=== PATIENT | female | born 1995 | race Caucasian/White ===

== ENCOUNTER 2019-12-07 11:38 | Emergency (ER) | payer BC, SELFPAY ==
--- NOTE | 2019-12-07 14:51 | PC.NURSE ---
AT 1400 PT STATES SHE CANT WAIT ANY LONGER AND LWT
== END 2019-12-07 14:56 | disposition left against medical advice (07) ==
PROVIDERS: Emergency Provider Emergency Medicine
DX: R10.9 Unspecified abdominal pain (principal)
CPT/HCPCS: 99281

== ENCOUNTER 2022-11-05 15:51 | Emergency (ER) | payer MEDICAID, SELFPAY ==
[2022-11-05 15:54] VITALS: BP 136/89; PULSE 104; RESP 16; TEMP 35.9; O2SAT 94; BMI 39.7
--- NOTE | 2022-11-05 15:54 | ED.GENADULT ---
HPI - General Adult General Chief complaint: Skin/Abscess/Foreign Body Stated complaint: cyst burst, unknown area Time Seen by Provider: 11/05/22 16:31 Source: patient Mode of arrival: ambulatory Limitations: no limitations History of Present Illness HPI narrative: 27-year-old female with history of opioid use disorder on methadone, obesity, asthma who presents to the ER for evaluation of a ruptured cyst on her right buttock. She states she noticed a tender, swollen area yesterday. She has history of similar cysts and abscesses in this area in the past, they it usually spontaneously drain and self-resolved. She states today the pain worsened and the cyst spontaneously ruptured. It drained a murky bloody fluid. She still had some tenderness surrounding the area and it was warm to touch. He was still actively draining so she came to the ER for further evaluation. She denies any fever or chills. She is not diabetic. MD complaint: Right buttock abscess Onset (ago): day(s) (1) Location: buttocks Radiation: non-radiation Severity: moderate Quality: sharp Pain Consistency: intermittent Relieving factors: none Exacerbating factors: other (palpation and sitting) Associated symptoms: denies other symptoms Treatments prior to arrival: none Related Data Previous Rx's Medication Instructions Recorded cephalexin 500 mg capsule 500 mg PO Q6H 5 days #20 caps 11/05/22 doxycycline hyclate 100 mg tablet 100 mg PO BID #10 tabs 11/05/22 Allergies Allergy/AdvReac Type Severity Reaction Status Date / Time acetaminophen [From TYLENOL] Allergy Unknown UPSET Unverified 11/10/19 16:38 STOMACH Review of Systems Review of Systems: Yes all other systems are reviewed and are negative [facility] Social History Social History Advance Directives: No Advance Directives Information Provided: Yes Physical Exam ED Vital Signs: Vital Signs - 24 hr 11/05/22 15:54 Temperature 96.6 F L Pulse Rate 104 H Respiratory Rate 16 Blood Pressure 136/89 Pulse Oximetry 94 Oxygen Delivery Method Room Air BMI result Body Mass Index 39.7 Appearance: Alert. Oriented X3. No acute distress. HEENT: normal inspection CVS: Normal heart rate and rhythm. Pulses normal. Respiratory: No respiratory distress. Skin: Skin warm and dry. Normal skin color. Normal skin turgor. on the right buttock there is a small, 1 cm area of open active draining bloody/purulent fluid with approximately 2-3 cm of surrounding erythema and induration with tenderness. No additional fluctuant areas appreciated. Distal from the anal verge and rectum. Scarring present on bilateral buttocks from prior cysts and lesions Extremities: normal inspection x4, no joint swelling Neuro: Oriented X 3. No motor deficit. No sensory deficit. Course Course Course Narrative: RME- 27 year old female presents for evaluation of an abscess in the perineum that popped this morning in the shower. Not visualized in triage. Patient also reports a cough and chest congestion from removing dry wall and there was black mold. Plan for chest x-ray Medical Decision Making Medical Decision Making MDM Narrative: 27-year-old female presenting to the ER for evaluation of a painful, draining cyst that was present on the right buttock starting yesterday. It is draining some dark red purulent material. no need for additional incision and drainage today. She does have some surrounding erythema and induration. Will treat with antibiotics. She was given strict return precautions to return if symptoms are worsening despite antibiotics Differential Diagnosis Differential Diagnoses: The differential diagnosis associated with the presentation includes abscess, cellulitis, hidradenitis suppurative, MRSA infection, no evidence of perianal abscess Prescription Management I considered prescription management with: Pain Medication and Antibiotic Chronic Conditions Patient?s care impacted by: Other (obesity) Critical Care Time Critical Care Time Critical Care Time: No Discharge Plan Discharge Clinical Impression: Abscess of skin or subcutaneous tissue Patient Disposition: Home, Self-Care Instructions: Abscess (ED) Additional Instructions: Take the prescribed antibiotics as directed, complete the entire course and do not miss any doses Use warm soaks to the area or take warm baths to help increase blood flow an for the area to heal. If you develop new or worsening symptoms call 911 or come back to the ER for further evaluation. Prescriptions: New cephalexin 500 mg capsule 500 mg PO Q6H 5 Days Qty: 20 0RF doxycycline hyclate 100 mg tablet 100 mg PO BID Qty: 10 0RF Referrals: [facility] [Primary Care Provider] - Interventions: ED Discharge Assessment Last Done: 11/05/22 17:37 Discharge Date/Time: 11/05/22 17:37
== END 2022-11-05 17:37 | disposition home or self-care (01) ==
PROVIDERS: Emergency Provider Internal Medicine
DX: L02.31 Cutaneous abscess of buttock (principal); F11.20 Opioid dependence, uncomplicated
CPT/HCPCS: 99282; 99283

== ENCOUNTER 2025-01-23 17:38 | Inpatient (IN) | payer MEDICAID, SELFPAY ==
--- NOTE | ~2025-01-23 | XR_ITS ---
CLINICAL HISTORY: 4th finger dorsal swelling 3 view left hand Comparison: None provided Findings: Bones intact. No dislocations. No arthritic changes. No erosions. No radiopaque foreign body. IMPRESSION: Significant soft tissue swelling throughout the hand. In particular, the base of the 4th digit is additionally swollen compared to the remaining digits. No soft tissue gas. This document has been electronically signed by: Crow Barton MD on 01/23/2025 21:11:17
--- NOTE | 2025-01-23 17:42 | ED.GENADULT ---
HPI - General Adult General Chief complaint: Extremity Injury, Upper Stated complaint: broken finger? Time Seen by Provider: 01/23/25 19:52 History of Present Illness ED Provider: Kailyn Li NP HPI narrative: 29-year-old female medical history significant for current IV drug abuse (heroin), presents to the ED with her partner for evaluation reporting left hand ring finger swelling and pain. Reports this has been ongoing for about 2 days. Initially she reportedly slept on her hand with her fingers bent (in a fist position) and woke up to some discomfort. She then reports that she accidentally hit her hand on something. There is a small superficial abrasion near the area of redness and swelling. Reports that the pain, redness and swelling has become severe over the course of 2 days, now is intolerable. She has not injected any drugs into the left hand for greater than 6 months per her report. She denies any fever, chills, chest pain or pressure, shortness of breath, abdominal pain. Does report the redness is now extending into the middle finger. She is unable to fully extend the ring finger. Related Data Previous Rx's ?Medication ?Instructions ?Recorded cephalexin 500 mg capsule 500 mg PO Q6H 5 days #20 caps 11/05/22 doxycycline hyclate 100 mg tablet 100 mg PO BID #10 tabs 11/05/22 Allergies Allergy/AdvReac Type Severity Reaction Status Date / Time acetaminophen (From TYLENOL) Allergy Unknown UPSET Verified 01/23/25 17:45 STOMACH Review of Systems Review of Systems: ROS is otherwise negative unless mentioned in HPI. [facility] Social History Social History Advance Directives: No Advance Directives Information Provided: Yes Do you have a plan to hurt others: No Plan Physical Exam ED Exam Exam: Nursing notes and vital signs reviewed. Constitutional: Well-appearing, NAD. Alert. Oriented X3. Eyes: EOMI. ENT: Pharynx normal. Neck: Normal inspection. Neck supple. CVS: Normal heart rate and rhythm. Pulses normal. Respiratory: No respiratory distress. Breath sounds normal. Abdomen: Soft, nondistended, nontender. Skin: Skin warm and dry. Normal skin color. Left hand ring finger with significant erythema, warmth, and swelling -- extending into the middle finger and overlying the knuckle. Pain to palpation over the flexor tendon and palm on left hand. See photo. Extremities: No lower extremity edema. Neuro: Oriented X 3. No motor deficit. Vital Signs: Vital Signs - 24 hr 01/23/25 17:44 Temperature 98.3 F Pulse Rate 86 Respiratory Rate 18 Blood Pressure 159/85 H Pulse Oximetry 98 Oxygen Delivery Method Room Air BMI result Body Mass Index 38.3 Course Course Course Narrative: This is a rapid medical exam performed by Jonnie Muse NP: Additional HPI, ROS, PE not included below will be deferred to primary provider. Patient is a 29y/o right hand dominant F presenting to the ED with complaint of left hand pain, erythema, swelling and decreased ROM. States she fell asleep on her left hand two mornings ago and woke with pain and swelling. Denies any known injury/trauma. Abrasion to 4th finger. See photo. Plan: labs including cultures, xray Medications Administered Generic Name Dose Route Start Last Admin Trade Name Freq PRN Reason Stop Dose Admin Vancomycin HCl 2,000 mg in 500 mls @ 250 mls/hr 01/23/25 20:21 01/23/25 22:00 Vancomycin/Ns IV 01/23/25 22:20 250 mls/hr ONCE ONE Administration Discontinued Medications Generic Name Dose Route Start Last Admin Trade Name Freq PRN Reason Stop Dose Admin Piperacillin Sod/Tazobactam 50 mls @ 100 mls/hr 01/23/25 20:21 01/23/25 22:00 Sod 3.375 gm/ Sodium Chloride IV 01/23/25 20:50 Infused ONCE ONE Infusion Sodium Chloride 1,000 mls @ 999 mls/hr 01/23/25 20:21 01/23/25 21:36 Ns IV 01/23/25 21:21 999 mls/hr .Q1H1M ONE Administration Morphine Sulfate 4 mg 01/23/25 20:21 01/23/25 21:31 Morphine Sulfate 4 Mg/Ml Cartridge IVPUSH 01/23/25 20:22 4 mg ONCE ONE Administration Protocol Medical Decision Making Medical Decision Making [facility] Narrative: 8:20 PM 01/23/2025 (Kailyn Li NP): Upon my assessment, my initial concern is for a flexor tenosynovitis, as the patient has the left hand ring finger in a persistently flexed position. She expresses extreme discomfort, severe pain to passive extension of the finger. It appears like a sausage, there is discomfort to palpation over the flexor tendon, as well as the palmar surface. The redness is extending over the knuckle of the ring finger, and into the middle finger. Labwork was unable to be obtained in triage. I have added on a lactic acid level. However, she is afebrile, without tachycardia, and at this time I have no clinical suspicion for sepsis. Pending lab work, I have empirically ordered IV antibiotics Zosyn, and vancomycin, given the history of IVDU and MRSA risk. I also spoke with orthopedics on-call IAM Reddy, who recommends medicine admission for IV antibiotics, and the plan for orthopedics to see the patient in the morning. I have ordered morphine for her discomfort. X-ray results are pending. Pending lab work for admission. 2200-- Reportedly feels much better after morphine administration. The redness has only minimally improved, she is currently receiving IV vancomycin, has already received the Zosyn. Her lab work surprisingly does not show leukocytosis, she does have some anemia, and her CRP is elevated at 2.61. Sed rate is currently pending. She is agreeable with admission plan. Signed-out to hospitalist, Dr. Rodriguez. Differential Diagnosis Differential Diagnoses: The differential diagnosis associated with the presentation includes Flexor tenosynovitis, felon, hand abscess/cellulitis Admission/Observation Consideration of admission/observation: Escalation of care including admission/observation considered (Yes, indicated) Consult Healthcare Provider Management of the patient was discussed with: Director Of Land Acquisition (Orthopedics, Barry VITALE) Lab Data MDM Lab Attestation statement: I reviewed the patient's lab results. (Reassuring, no leukocytosis, however elevated CRP, pending ESR.) 01/23/25 21:20 01/23/25 21:20 Labs: Lab Results 01/23/25 Range/Units 21:20 WBC 8.0 (4.8-10.8) X10*3/uL RBC 4.49 (4.20-5.50) X10*6/uL Hgb 11.2 L (12.0-16.0) g/dl Hct 34.5 L (37.0-47.0) % MCV 76.8 L (80.0-98.0) fL MCH 24.9 L (27.0-33.0) pg MCHC 32.5 (31.0-35.0) g/dl RDW 15.3 (11.0-16.0) % Plt Count 342 (160-400) X10*3/uL MPV 8.7 L (9.4-12.3) fL Immature Gran % (Auto) 0.2 (0.0-0.4) % Neut % (Auto) 65.3 (45-73) % Lymph % (Auto) 23.0 (20-40) % [place] % (Auto) 6.2 (2-11) % Eos % (Auto) 4.7 H (0-4) % Baso % (Auto) 0.6 (0-2) % Lymph # (Auto) 1.8 (1.2-4.9) X10*3/uL [place] # (Auto) 0.5 (0.1-1.2) X10*3/uL Eos # (Auto) 0.4 (0.0-0.4) X10*3/uL Baso # (Auto) 0.1 (0.0-0.2) X10*3/uL Abs Immat Gran (auto) 0.02 (0.00-0.03) X10*3/uL Absolute Neuts (auto) 5.2 (2.0-8.3) x10*3/uL Absolute Nucleated RBC 0.000 (0.0-0.012) X10*3/uL Nucleated RBC % (auto) 0.0 (0.0-0.2) /100WBC Sodium 137 (135-145) mmol/L Potassium 4.2 (3.3-5.1) mmol/L Chloride 109 H (96-108) mmol/L Carbon Dioxide 23 (22-29) mmol/L Anion Gap 9 L (12-20) BUN 16 (9-16) mg/dL Creatinine 0.84 (0.5-1.4) mg/dL Estim Creat Clear Calc 129.2 Estimated GFR > 60 Random Glucose 89 (60-115) mg/dL Lactic Acid 0.6 (0.5-2.0) mmol/L Calcium 9.4 (8.4-10.2) mg/dL Total Bilirubin 0.4 (0.0-1.0) mg/dL AST 32 H (5-31) U/L ALT 32 H (0-31) U/L Alkaline Phosphatase 100 (39-117) U/L C-Reactive Protein 2.61 H (< or = 0.50) mg/dL Total Protein 8.1 H (6.5-8.0) g/dL Albumin 4.4 (3.5-5.0) g/dL Independent Interpretation I performed an independent interpretation of an: Plain X-Ray Interpretation: I have reviewed the patient's imaging and agree with the radiologist's findings. Radiology Impression Discussion of test interpretation with radiology: I have reviewed the radiologist's reading. Radiologist Impression: XR Hand LT IMPRESSION: Significant soft tissue swelling throughout the hand. In particular, the base of the 4th digit is additionally swollen compared to the remaining digits. No soft tissue gas. Independent Historian Clinical information obtained from an independent historian. History obtained from or confirmed by: Spouse (Boyfriend) External Record Review External record reviewed: Other (ER visit from 2022.) Chronic Conditions Patient?s care impacted by: Other (IVDU use) Social Determinants Patient?s care significantly limited by Social Determinants of Health including: Inadequate housing, Alcoholism and drug addiction in family and Problems related to primary support group Discharge Plan Discharge Clinical Impression: Finger infection Patient Disposition: Admitted As Inpatient Print Language: Kuwaiti
[2025-01-23 17:44] VITALS: BP 159/85; PULSE 86; RESP 18; TEMP 36.8; O2SAT 98; BMI 38.3
[2025-01-23 21:30] LABS: MANUAL DIFF FLAG NO
[2025-01-23 21:33] LABS: Hematocrit 34.5 % (37.0-47.0); Hemoglobin 11.2 g/dl (12.0-16.0); Imm Gran Abs Auto 0.02 X10*3/uL (0.00-0.03); Imm Gran Pct Auto 0.2 % (0.0-0.4); Lymphocytes Absolute Auto 1.8 X10*3/uL (1.2-4.9); Mean Corpuscular HGB Conc 32.5 g/dl (31.0-35.0); Mean Corpuscular Hemoglobin 24.9 pg (27.0-33.0); Mean Corpuscular Volume 76.8 fL (80.0-98.0); NRBC Abs Auto 0.000 X10*3/uL (0.0-0.012); NRBC Pct Auto 0.0 /100WBC (0.0-0.2); Platelet Count 342 X10*3/uL (160-400); Red Blood Count 4.49 X10*6/uL (4.20-5.50); White Blood Count 8.0 X10*3/uL (4.8-10.8)
[2025-01-23 21:49] LABS: Alanine Aminotransferase 32 U/L (0-31); Albumin Level 4.4 g/dL (3.5-5.0); Alkaline Phosphatase 100 U/L (39-117); Anion Gap 9 (12-20); Aspartate Amino Transferase 32 U/L (5-31); Blood Urea Nitrogen 16 mg/dL (9-16); Calcium 9.4 mg/dL (8.4-10.2); Carbon Dioxide 23 mmol/L (22-29); Chloride 109 mmol/L (96-108); Creatinine Clr Calc Pharmacy 129.2; Estimated Glomerular Filt Rate > 60; Potassium 4.2 mmol/L (3.3-5.1); Sodium 137 mmol/L (135-145); Total Protein 8.1 g/dL (6.5-8.0)
[2025-01-23] MEDS: vancomycin/NS 2,000 MG/500 ML PLAST..BAG 250 MG IV (22:00)
--- NOTE | 2025-01-23 22:04 | HO.NURTONUR ---
Pt here w/ c/o L middle finger/knuckle swelling x 2 days. Pt has sig hx of iv heroin use, but denies shes used ivs in this hand for greater than 6 months. Pt tx'd w/ iv zosyn, and vanco. WBC's wnl, but inflammation markers are elevated. Plan for hand consult tomorrow
[2025-01-23 22:12] VITALS: BP 121/56; PULSE 72; RESP 18; TEMP 36.8; O2SAT 99
--- NOTE | 2025-01-23 23:15 | PC.NURSE ---
Report taken from Gunjan RN assumed care of pt at this time. Pt ambulatory to bathroom steady gait. Reports positive pain relief from previously administered pain med. Awaiting bed assignment for admission, aware of plan of care.
--- NOTE | 2025-01-23 23:52 | PM.IMHP ---
History of Present Illness Date of Service: 01/23/25 Chief Complaint: Finger infection 29-year-old female with no significant past medical history presented to the hospital with a chief complaint of left hand 2nd finger pain redness and swelling for the past 2 days. Reports sleeping on the hand and later she noticed some redness which gradually worsened. Denies any injury. Denies injecting any drugs. Denies any fevers and chills. Denies any chest pain or palpitations. Mentions the pain is severe and range of motion is limited around the metatarsophalangeal joint. Review of all other systems is negative except mentioned above ER course: Per ER team, patient not have left hand ring finger were swelling and erythema extending into the dorsum of the hand. ROM limited. Discussed with orthopedics who reviewed the images and mentioned does not need any acute intervention for now. Recommended to continue antibiotics. PMFSH Social History Use of substances other than those prescribed or required for medical reasons: Yes Substance Use Type: Heroin Substance Use Frequency: Daily Advance Directives: No Advance Directives Information Provided: Yes Do you have a plan to hurt others: No Plan Patient : No Meds Allergies Allergy/AdvReac Type Severity Reaction Status Date / Time acetaminophen (From TYLENOL) Allergy Unknown UPSET Verified 01/23/25 17:45 STOMACH Active Medications: Current Medications Calcium Carbonate (Calcium Carbonate 750 Mg Tab.Chew) 750 mg PO Q4H PRN PRN Reason: Heartburn Enoxaparin Sodium (Enoxaparin Sodium 40 Mg/0.4 Ml Syringe) 40 mg SUBCUT Q24H JONAH Hydromorphone HCl (Hydromorphone Hcl 1 Mg/Ml Syringe) 0.5 mg IVPUSH Q4H PRN; Protocol PRN Reason: Pain, Severe (Pain Scale 7-10) Last Admin: 01/23/25 22:53 Dose: 0.5 mg Lactated Ringer's (Lr) 1,000 mls @ 100 mls/hr IVCONT .Q10H JONAH Magnesium Hydroxide (Milk Of Magnesia 30 Ml Oral.Susp) 30 ml PO DAILY PRN PRN Reason: Constipation Melatonin (Melatonin 3 Mg Tablet) 6 mg PO BEDTIME PRN PRN Reason: Insomnia Sodium Chloride (0.9 % Sodium Chloride Flush 3 Ml Syringe) 3 ml IVFLUSH QSHIFT JONAH Physical Exam Vital Signs and Narrative: Vital Signs: Last Vital Signs Temp 98.3 F 01/23/25 22:12 Pulse 72 01/23/25 22:12 Resp 18 01/23/25 22:12 BP 121/56 L 01/23/25 22:12 Pulse Ox 99 01/23/25 22:12 O2 Del Method Room Air 01/23/25 22:12 BMI result Body Mass Index 38.3 Gen: Appears be in no acute distress HEENT: NCAT, Moist mucosa. Pulmonary: Vesicular breath sounds, fair air entry CVS: Normal S1-S2 Abdomen: BS+, Soft, Nontender; Extremities: Warm well perfused; left hand ring finger warm tender erythematous; erythema extending into the dorsum of the hand. ROM around the metoprolol phalangeal bone slightly limited secondary to the pain. Neuro: Alert and awake. Results Labs 01/23/25 21:20 01/23/25 21:20 Labs: Laboratory Results - last 24 hr 01/23/25 21:20 MCV 76.8 L MCH 24.9 L MCHC 32.5 RDW 15.3 Plt Count 342 MPV 8.7 L Immature Gran % (Auto) 0.2 Neut % (Auto) 65.3 Lymph % (Auto) 23.0 [place] % (Auto) 6.2 Eos % (Auto) 4.7 H Baso % (Auto) 0.6 Lymph # (Auto) 1.8 [place] # (Auto) 0.5 Eos # (Auto) 0.4 Baso # (Auto) 0.1 Abs Immat Gran (auto) 0.02 Absolute Neuts (auto) 5.2 Absolute Nucleated RBC 0.000 Nucleated RBC % (auto) 0.0 ESR 43 H Anion Gap 9 L Estim Creat Clear Calc 129.2 Estimated GFR > 60 Random Glucose 89 Lactic Acid 0.6 Calcium 9.4 Total Bilirubin 0.4 AST 32 H ALT 32 H Alkaline Phosphatase 100 C-Reactive Protein 2.61 H Total Protein 8.1 H Albumin 4.4 Assessment and Plan (1) Finger infection: Status: Acute Plan 29-year-old female with no significant past medical history presented to the hospital with a chief complaint of left hand 2nd finger pain redness and swelling for the past 2 days. Noted to have finger cellulitis. Finger cellulitis: Suspected tenosynovitis: Pain control Continue vanc and Zosyn Orthopedics consult was notified-no intervention suggested at this point DVT prophylaxis: Lovenox Code status: Full code Quality Stroke Does the patient have a stroke diagnosis?: No VTE Prior VTE?: No VTE Risk Level:: Medical - moderate - high VTE Device Contraindication: Treatment Not Indicated VTE Drug Contraindication: N/A - Med Ordered
[2025-01-24] MEDS: 0.9 % Sodium Chloride Flush 3 ML SYRINGE IVFLUSH ×2 (00:26→20:25)
[2025-01-24] MEDS: Lactated Ringers 1,000 ML 100 ML IVCONT ×3 (00:26→18:31)
[2025-01-24 00:41] VITALS: BP 121/62; PULSE 75; RESP 18; TEMP 36.6; O2SAT 99
--- NOTE | 2025-01-24 03:40 | PC.NURSE ---
Pt medicated per MAR for increased pain to left hand. IV abx hung and infusing without difficulty. Ice packs provided for comfort.
[2025-01-24 05:22] LABS: Anion Gap 14 (12-20); Blood Urea Nitrogen 16 mg/dL (9-16); Calcium 8.9 mg/dL (8.4-10.2); Carbon Dioxide 18 mmol/L (22-29); Chloride 114 mmol/L (96-108); Creatinine Clr Calc Pharmacy 135.7; Estimated Glomerular Filt Rate > 60; Potassium 4.2 mmol/L (3.3-5.1); Sodium 142 mmol/L (135-145)
[2025-01-24 06:42] LABS: Hematocrit 34.5 % (37.0-47.0); Hemoglobin 11.4 g/dl (12.0-16.0); Mean Corpuscular HGB Conc 33.0 g/dl (31.0-35.0); Mean Corpuscular Hemoglobin 24.8 pg (27.0-33.0); Mean Corpuscular Volume 75.2 fL (80.0-98.0); NRBC Abs Auto 0.000 X10*3/uL (0.0-0.012); NRBC Pct Auto 0.0 /100WBC (0.0-0.2); PLT CLUMP 1; Platelet Count 262 X10*3/uL (160-400); Red Blood Count 4.59 X10*6/uL (4.20-5.50); White Blood Count 9.1 X10*3/uL (4.8-10.8)
--- NOTE | 2025-01-24 06:44 | PHA.PROG ---
Admission Date/Time: January 23, 2025 22:09 Indication: Skin Weight in k kg Adjusted body weight in Kg: [place] body weight in Kg: Obesity Dosing Indication % IBW: Serum Creatinine - Last 168 Hours 01/23/25 01/24/25 21:20 04:51 Creatinine 0.84 0.80 Estimated CrCl and GFR - Last 168 Hours 01/23/25 01/24/25 21:20 04:51 Estim Creat Clear Calc 129.2 135.7 Estimated GFR > 60 > 60 Vancomycin Loading Dose: 2000mg Current Vancomycin Dosing Regimen: 1250 mg q12h Vancomycin Monitoring using AUC goal of 400 - 600 range with trough as surrogate marker: 460 mg/L*hr trough of 14.5 Date and Time for next Vancomycin Level to be drawn: 01/25/25 @ 0800 Pharmacist Comments on Vancomycin Plan: Vancomycin dosing will take advantage of [employer] as a clinical decision support tool that uses Bayesian modeling to calculate individual patient's pharmacokinetic parameters and forecast the patient's drug concentration time course with the target goal AUC 24 range of 400 - 600 mg/L/hr.
[2025-01-24 07:52] VITALS: BP 118/77; PULSE 89; RESP 16; TEMP 36.8; O2SAT 100
--- NOTE | 2025-01-24 08:08 | HO.SKINPHOTO ---
Location: Category: Stage: Length: Width: Depth: cm Location: Category: Stage: Length: Width: Depth: cm Location: Category: Stage: Length: Width: Depth: cm Location: Category: Stage: Length: Width: Depth: cm Location: Category: Stage: Length: Width: Depth: cm Location: Category: Stage: Length: Width: Depth: cm
--- NOTE | 2025-01-24 09:25 | PC.NURSE ---
Pt states she uses Heroin, no drugs on person. Declines Addiction Med consult.
--- NOTE | 2025-01-24 09:34 | PM.CNOR ---
History of Present Illness HPI Consult date: 01/24/25 Chief complaint: finger cellulitis Narrative: Patient is a 29-year-old female who was admitted to the hospital for redness, swelling, and significant pain of the left ring finger Patient states there was no injury or particular inciting event, that she awoke approximately 3 days ago with significant pain, redness, swelling, and this worsened until yesterday. Patient presented to the emergency department yesterday, and was admitted to the hospital for IV antibiotics and further evaluation Today, the patient reports that her hand is still swollen and red, however this has improved significantly since yesterday, and her range of motion has also improved Patient states that she is able to now passively and actively flex and extend the digit, which she was not able to before Patient also states that she has no further redness on the volar aspect of the left ring finger, which was present yesterday Denies numbness or tingling in the left hand No other acute complaints or concerns at this time Review of Systems Review of Systems: Yes all other systems are reviewed and are negative [facility] Social History Social History Household Members: Significant Other Housing: House Do you presently have visiting nurse or other home services: No Patient Tobacco Use Status: Current everyday Tobacco user Tobacco use type: Cigarette Use of substances other than those prescribed or required for medical reasons: Yes Substance Use Type: Heroin Substance Use Frequency: Daily Have you been hit, kicked, punched, or otherwise hurt by someone within the past year? If so, by whom?: No Do you feel safe in your current relationship?: Yes Is there a partner from a previous relationship who is making you feel unsafe now?: No Are you made to feel afraid or neglected: No Advance Directives: No Advance Directives Information Provided: Yes Do you have a plan to hurt others: No Plan Recently lost weight without trying: No Nutrition Risks: No Nutritional Risk Patient : No : No Poor oral hygiene: No Meds Allergies Allergy/AdvReac Type Severity Reaction Status Date / Time acetaminophen (From TYLENOL) Allergy Unknown UPSET Verified 01/23/25 17:45 STOMACH Active Medications: Current Medications Calcium Carbonate (Calcium Carbonate 750 Mg Tab.Chew) 750 mg PO Q4H PRN PRN Reason: Heartburn Enoxaparin Sodium (Enoxaparin Sodium 40 Mg/0.4 Ml Syringe) 40 mg SUBCUT Q24H [facility] Last Admin: 01/24/25 00:30 Dose: 40 mg Hydromorphone HCl (Hydromorphone Hcl 1 Mg/Ml Syringe) 0.5 mg IVPUSH Q4H PRN; Protocol PRN Reason: Pain, Severe (Pain Scale 7-10) Last Admin: 01/24/25 09:22 Dose: 0.5 mg Lactated Ringer's (Lr) 1,000 mls @ 100 mls/hr IVCONT .Q10H [facility] Last Admin: 01/24/25 09:20 Dose: 100 mls/hr Piperacillin Sod/Tazobactam (Sod 3.375 gm/ Sodium Chloride) 50 mls @ 100 mls/hr IV Q6H [facility] Last Infusion: 01/24/25 09:16 Dose: Infused Vancomycin HCl 1,250 mg/ (Sodium Chloride) 250 mls @ 166.667 mls/hr IV Q12H [facility] Last Admin: 01/24/25 09:19 Dose: 166.67 mls/hr Magnesium Hydroxide (Milk Of Magnesia 30 Ml Oral.Susp) 30 ml PO DAILY PRN PRN Reason: Constipation Melatonin (Melatonin 3 Mg Tablet) 6 mg PO BEDTIME PRN PRN Reason: Insomnia Naproxen (Naproxen 500 Mg Tablet) 500 mg PO Q12H PRN PRN Reason: Breakthrough Pain Last Admin: 01/24/25 06:56 Dose: 500 mg Pharmacy Consult (Consult Rx Vancomycin Dosing) 1 each MISCELLANE DAILY PRN PRN Reason: Consult order Sodium Chloride (0.9 % Sodium Chloride Flush 3 Ml Syringe) 3 ml IVFLUSH QSHIFT [facility] Last Admin: 01/24/25 06:54 Dose: Not Given Home Medications ?Medication ?Instructions ?Recorded ?Confirmed ?Last Taken ?Type albuterol sulfate 90 mcg/actuation 1 - 2 inh inhalation Q4-6H PRN 01/24/25 01/24/25 Unknown History breath activated powder inhaler Shortness Of Breath Or Wheezing naproxen 250 mg tablet 250 mg PO BID PRN Pain 01/24/25 01/24/25 Unknown History Physical Exam Vital Signs: Vital Signs: Last Vital Signs Temp 98.2 F 01/24/25 07:52 Pulse 89 01/24/25 07:52 Resp 16 01/24/25 07:52 BP 118/77 01/24/25 07:52 Pulse Ox 100 01/24/25 07:52 O2 Del Method Room Air 01/24/25 07:52 BMI result Body Mass Index 38.3 Extrem: Other: Patient is alert, oriented, and in no acute distress. Neuro: Normal sensation of the tips of all digits of the left hand at this time Vascular: Cap refill brisk Pain: Tenderness to palpation about the dorsal aspect of the left ring finger and 4th MCP joint, with some tenderness extending into the distal hand Pain with range of motion of the left hand Left ring finger is able to be passively extend fully, however this is with some discomfort Flexion of the left ring finger also causes this pain ROM: Patient is able to be passively extended fully Patient is able to get approximately 2/[address] a closed fist Skin: Tiny scabbed over laceration is noted on the radial aspect of the proximal left ring finger General: Significant erythema and edema in the dorsal and proximal aspect of the left ring finger as well as over the MCP joint and extending into the dorsal hand Psych: Appears grossly normal Affect normal Attitude cooperative Results Labs 01/24/25 05:44 01/24/25 04:51 Labs: Abnormal lab results 01/23/25 01/24/25 01/24/25 Range/Units 21:20 04:51 05:44 Hgb 11.2 L 11.4 L (12.0-16.0) g/dl Hct 34.5 L 34.5 L (37.0-47.0) % MCV 76.8 L 75.2 L (80.0-98.0) fL MCH 24.9 L 24.8 L (27.0-33.0) pg MPV 8.7 L (9.4-12.3) fL Eos % (Auto) 4.7 H (0-4) % ESR 43 H (0-20) MM/HR Chloride 109 H 114 H (96-108) mmol/L Carbon Dioxide 18 L (22-29) mmol/L Anion Gap 9 L (12-20) AST 32 H (5-31) U/L ALT 32 H (0-31) U/L C-Reactive Protein 2.61 H (< or = 0.50) mg/dL Total Protein 8.1 H (6.5-8.0) g/dL H & H 01/23/25 01/24/25 Range/Units 21:20 05:44 Hgb 11.2 L 11.4 L (12.0-16.0) g/dl Hct 34.5 L 34.5 L (37.0-47.0) % All other labs normal. Assessment and Plan (1) Finger infection: Status: Acute (2) Cellulitis of left ring finger: Status: Acute Plan 1. Cellulitis of left ring finger Continue IV antibiotics As the patient has improved significantly with IV antibiotics overnight, after discussion with Dr. Donis, we feel it is best to continue to monitor the patient's progress on antibiotics There is no clinical evidence for abscess or flexor tenosynovitis at this time, appears to be cellulitis and edema However, Orthopedics will continue to monitor for potential need for surgery NPO at midnight pending evaluation tomorrow for potential surgery if needed OT for early range of motion of the left hand Patient understands this and is amenable to this plan Procedures Date of Service Date of Service: 01/24/25
[2025-01-24 16:00] VITALS: BP 116/65; PULSE 76; RESP 18; TEMP 37.2; O2SAT 97
--- NOTE | 2025-01-24 16:34 | P.PNIM_ITS ---
Subjective Subjective Date of Service: 01/24/25 Interval History: f finger cellulitis Review of Systems Finger area swelling and erythema same , has pain. Review of Systems: Yes all other systems are reviewed and are negative Physical Exam 2 Exam: Exam: Gen: Appears be in no acute distress Pulmonary: Vesicular breath sounds, fair air entry CVS: Normal S1-S2 Abdomen: BS+, Soft, Nontender; Extremities: Warm well perfused; left hand ring finger warm tender erythematous; erythema extending into the dorsum of the hand. ROM somewhat limited -similar to h&P. Neuro: Alert and awake. Vital Signs: Vital Signs: Last Vital Signs Temp 98.9 F 01/24/25 16:00 Pulse 76 01/24/25 16:00 Resp 18 01/24/25 16:00 BP 116/65 01/24/25 16:00 Pulse Ox 97 01/24/25 16:00 O2 Del Method Room Air 01/24/25 16:00 BMI result Body Mass Index 38.3 Objective Data Active Medications Calcium Carbonate (Calcium Carbonate 750 Mg Tab.Chew) 750 mg PO Q4H PRN PRN Reason: Heartburn Enoxaparin Sodium (Enoxaparin Sodium 40 Mg/0.4 Ml Syringe) 40 mg SUBCUT Q24H [facility] Last Admin: 01/24/25 00:30 Dose: 40 mg Documented By: WANDA Hydromorphone HCl (Hydromorphone Hcl 1 Mg/Ml Syringe) 0.5 mg IVPUSH Q4H PRN; Protocol PRN Reason: Pain, Severe (Pain Scale 7-10) Last Admin: 01/24/25 14:56 Dose: 0.5 mg Documented By: ROSEANN Lactated Ringer's (Lr) 1,000 mls @ 100 mls/hr IVCONT .Q10H [facility] Last Admin: 01/24/25 09:20 Dose: 100 mls/hr Documented By: ROSEANN Piperacillin Sod/Tazobactam (Sod 3.375 gm/ Sodium Chloride) 50 mls @ 100 mls/hr IV Q6H [facility] Last Infusion: 01/24/25 14:39 Dose: Infused Documented By: ROSEANN Vancomycin HCl 1,250 mg/ (Sodium Chloride) 250 mls @ 166.667 mls/hr IV Q12H [facility] Last Infusion: 01/24/25 11:43 Dose: Infused Documented By: ROSEANN Magnesium Hydroxide (Milk Of Magnesia 30 Ml Oral.Susp) 30 ml PO DAILY PRN PRN Reason: Constipation Melatonin (Melatonin 3 Mg Tablet) 6 mg PO BEDTIME PRN PRN Reason: Insomnia Naproxen (Naproxen 500 Mg Tablet) 500 mg PO Q12H PRN PRN Reason: Breakthrough Pain Last Admin: 01/24/25 06:56 Dose: 500 mg Documented By: MARCO Pharmacy Consult (Consult Rx Vancomycin Dosing) 1 each MISCELLANE DAILY PRN PRN Reason: Consult order Sodium Chloride (0.9 % Sodium Chloride Flush 3 Ml Syringe) 3 ml IVFLUSH QSHIFT [facility] Last Admin: 01/24/25 13:23 Dose: Not Given Documented By: ROSEANN Non-Admin Reason: IV Running Labs 01/24/25 05:44 01/24/25 04:51 Labs: Laboratory Results - last 24 hr 01/23/25 01/24/25 01/24/25 21:20 04:51 05:44 MCV 76.8 L 75.2 L MCH 24.9 L 24.8 L MCHC 32.5 33.0 RDW 15.3 15.4 Plt Count 342 262 MPV 8.7 L 9.9 Immature Gran % (Auto) 0.2 Neut % (Auto) 65.3 Lymph % (Auto) 23.0 [place] % (Auto) 6.2 Eos % (Auto) 4.7 H Baso % (Auto) 0.6 Lymph # (Auto) 1.8 [place] # (Auto) 0.5 Eos # (Auto) 0.4 Baso # (Auto) 0.1 Abs Immat Gran (auto) 0.02 Absolute Neuts (auto) 5.2 Absolute Nucleated RBC 0.000 0.000 Nucleated RBC % (auto) 0.0 0.0 ESR 43 H Anion Gap 9 L 14 Estim Creat Clear Calc 129.2 135.7 Estimated GFR > 60 > 60 Random Glucose 89 102 Lactic Acid 0.6 Calcium 9.4 8.9 Total Bilirubin 0.4 AST 32 H ALT 32 H Alkaline Phosphatase 100 C-Reactive Protein 2.61 H Total Protein 8.1 H Albumin 4.4 Assessment and Plan (1) Finger infection: Status: Acute (2) Cellulitis of left ring finger: Status: Acute Plan 29-year-old female with no significant past medical history presented to the hospital with a chief complaint of left hand 2nd finger pain redness and swelling for the past 2 days. Noted to have finger cellulitis. Finger cellulitis: Suspected tenosynovitis: Pain control Continue vanc and Zosyn Orthopedics consult -continue iv antibiotics ,NPO at midnight pending evaluation tomorrow for potential surgery if needed DVT prophylaxis: Lovenox Code status: Full code ongoing need -Finger cellulitis: Need IV antibiotics, orthopedics following. Quality Stroke Does the patient have a stroke diagnosis?: No VTE Prior VTE?: No VTE Risk Level:: Medical - moderate - high VTE Device Contraindication: Treatment Not Indicated VTE Drug Contraindication: N/A - Med Ordered
--- NOTE | 2025-01-24 17:06 | PC.NURSE ---
No s/s withdraw at this time.
[2025-01-24 20:00] VITALS: BP 128/65; PULSE 78; RESP 19; TEMP 36.5; O2SAT 98
[2025-01-25 03:21] VITALS: BP 113/65; PULSE 63; RESP 16; TEMP 36.6; O2SAT 99
[2025-01-25] MEDS: Lactated Ringers 1,000 ML 100 ML IVCONT (03:43)
[2025-01-25 07:43] VITALS: BP 117/65; PULSE 67; RESP 16; TEMP 37.3; O2SAT 99
--- NOTE | 2025-01-25 09:39 | PM.PNORT ---
Subjective Subjective Date of Service: 01/25/25 Interval history: Patient is a 29-year-old female admitted to the hospital for left ring finger swelling, redness, pain Patient resting in bed this morning Reports slight improvement in pain in the left hand Patient also reports improvement in redness, but finger is still quite swollen Range of motion has not changed much since yesterday Continues IV antibiotics No other acute complaints or concerns at this time Physical Exam Vital Signs: Vital Signs: Last Vital Signs Temp 99.1 F 01/25/25 07:43 Pulse 67 01/25/25 07:43 Resp 16 01/25/25 07:43 BP 117/65 01/25/25 07:43 Pulse Ox 99 01/25/25 07:43 O2 Del Method Room Air 01/25/25 07:43 BMI result Body Mass Index 38.3 Extrem: Other: Patient is alert, oriented, and in no acute distress. Neuro: Normal sensation of the tips of all digits of the left hand at this time Vascular: Cap refill brisk Pain: Tenderness to palpation about the dorsal aspect of the left ring finger and 4th MCP joint, with some tenderness extending into the distal hand Pain with range of motion of the left hand Left ring finger is able to be passively extend fully, however this is with some discomfort Flexion of the left ring finger also causes this pain ROM: Patient is able to be passively extended fully Patient is able to get approximately 2/[address] a closed fist Skin: Tiny scabbed over laceration is noted on the radial aspect of the proximal left ring finger General: Significant edema in the dorsal and proximal aspect of the left ring finger as well as over the MCP joint and extending into the dorsal hand, largely unchanged from yesterday Today, there is a palpable fluid collection just distal to the dorsal MCP joint of the left ring finger concerning for abscess There is still erythema present over the dorsal aspect of the left ring finger, however this appears improved from yesterday Psych: Appears grossly normal Affect normal Attitude cooperative Procedures Date of Service Date of Service: 01/25/25 Progress Note: A&P Assessment and plan (1) Cellulitis of left ring finger: Status: Acute (2) Finger infection: Status: Acute (3) Abscess of left ring finger: Status: Acute Plan 1. Left ring finger abscess Case was discussed with Dr. Donis, and a collaborative treatment plan was formed: Patient is educated that due to what I feel is a collection of fluid that has occurred in the left ring finger, that I and D is likely her best option I educated the patient about the condition. I discussed both operative and nonoperative treatment options. The patient would like to proceed with surgery. The risks and benefits of operative treatment were discussed with the patient and the patient wishes to proceed with surgery. These risks include, but are not limited to, risk of damage to blood vessels, nerves, tendons, infection, recurrence, incomplete relief of preoperative symptoms, persistent pain, possible need for further surgery, and the risks associated with regional blocks and/or anesthesia. Plan is to take the patient to the operating room at some point tomorrow for the following procedures: 1. Left ring finger I and D NPO at midnight for surgery tomorrow We will re-evaluate tomorrow morning prior to surgery to see if there are any changes that may necessitate change in plan Time Spent With Patient Time: Total time managing care of this patient today ____ minutes. Quality Stroke Does the patient have a stroke diagnosis?: No VTE Prior VTE?: No VTE Risk Level:: Medical - moderate - high VTE Device Contraindication: Treatment Not Indicated VTE Drug Contraindication: N/A - Med Ordered
[2025-01-25 09:41] LABS: Anion Gap 12 (12-20); Blood Urea Nitrogen 16 mg/dL (9-16); Calcium 8.7 mg/dL (8.4-10.2); Carbon Dioxide 18 mmol/L (22-29); Chloride 112 mmol/L (96-108); Creatinine Clr Calc Pharmacy 144.7; Estimated Glomerular Filt Rate > 60; Potassium 4.1 mmol/L (3.3-5.1); Sodium 138 mmol/L (135-145)
[2025-01-25 10:05] LABS: Hematocrit 29.3 % (37.0-47.0); Hemoglobin 9.6 g/dl (12.0-16.0); Mean Corpuscular HGB Conc 32.8 g/dl (31.0-35.0); Mean Corpuscular Hemoglobin 24.7 pg (27.0-33.0); Mean Corpuscular Volume 75.5 fL (80.0-98.0); NRBC Abs Auto 0.000 X10*3/uL (0.0-0.012); NRBC Pct Auto 0.0 /100WBC (0.0-0.2); PLT CLUMP 1; Red Blood Count 3.88 X10*6/uL (4.20-5.50)
--- NOTE | 2025-01-25 10:34 | HE.PHANOTE ---
re: vanco Trough returned @10.7. AUC sub therapeutic. Increasing dose to 1500 mg Q12H with predicted AUC 484 and trough 14.3. Next level due 01/26 @2100.
[2025-01-25 10:41] LABS: Platelet Count 261 X10*3/uL (160-400); White Blood Count 6.6 X10*3/uL (4.8-10.8)
--- NOTE | 2025-01-25 10:57 | P.PNIM_ITS ---
Subjective Subjective Date of Service: 01/25/25 Interval History: 4th finger still swollen and painful Physical Exam 2 Vital Signs: Vital Signs: Last Vital Signs Temp 99.1 F 01/25/25 07:43 Pulse 67 01/25/25 07:43 Resp 16 01/25/25 07:43 BP 117/65 01/25/25 07:43 Pulse Ox 99 01/25/25 07:43 O2 Del Method Room Air 01/25/25 07:43 BMI result Body Mass Index 38.3 Extrem: Other: Patient is alert, oriented, and in no acute distress. Neuro: Normal sensation of the tips of all digits of the left hand at this time Vascular: Cap refill brisk Pain: Tenderness to palpation about the dorsal aspect of the left ring finger and 4th MCP joint, with some tenderness extending into the distal hand Pain with range of motion of the left hand Left ring finger is able to be passively extend fully, however this is with some discomfort Flexion of the left ring finger also causes this pain ROM: Patient is able to be passively extended fully Patient is able to get approximately 2/[address] a closed fist Skin: Tiny scabbed over laceration is noted on the radial aspect of the proximal left ring finger General: Significant edema in the dorsal and proximal aspect of the left ring finger as well as over the MCP joint and extending into the dorsal hand, largely unchanged from yesterday Today, there is a palpable fluid collection just distal to the dorsal MCP joint of the left ring finger concerning for abscess There is still erythema present over the dorsal aspect of the left ring finger, however this appears improved from yesterday Psych: Appears grossly normal Affect normal Attitude cooperative Objective Data Active Medications Albuterol Sulfate (Albuterol Sulfate 90 Mcg 8 Gm Inhaler) 1 - 2 puff INHALE Q4H PRN PRN Reason: Shortness Of Breath Or Wheezing Calcium Carbonate (Calcium Carbonate 750 Mg Tab.Chew) 750 mg PO Q4H PRN PRN Reason: Heartburn Enoxaparin Sodium (Enoxaparin Sodium 40 Mg/0.4 Ml Syringe) 40 mg SUBCUT Q24H [facility] 234 BEDS AT THE [facility] Last Admin: 01/24/25 23:10 Dose: 40 mg Documented By: LAKISHA Hydromorphone HCl (Hydromorphone Hcl 1 Mg/Ml Syringe) 0.5 mg IVPUSH Q4H PRN; Protocol PRN Reason: Pain, Severe (Pain Scale 7-10) Last Admin: 01/25/25 08:06 Dose: 0.5 mg Documented By: ROSEANN Piperacillin Sod/Tazobactam (Sod 3.375 gm/ Sodium Chloride) 50 mls @ 100 mls/hr IV Q6H [facility] 234 BEDS AT THE [facility] Last Infusion: 01/25/25 08:41 Dose: Infused Documented By: ROSEANN Vancomycin HCl 1,500 mg/ (Sodium Chloride) 500 mls @ 333.333 mls/hr IV Q12H [facility]CLUDE 234 BEDS AT THE [facility] Last Admin: 01/25/25 10:34 Dose: 333.33 mls/hr Documented By: ROSEANN Magnesium Hydroxide (Milk Of Magnesia 30 Ml Oral.Susp) 30 ml PO DAILY PRN PRN Reason: Constipation Melatonin (Melatonin 3 Mg Tablet) 6 mg PO BEDTIME PRN PRN Reason: Insomnia Naproxen (Naproxen 500 Mg Tablet) 500 mg PO Q12H PRN PRN Reason: Breakthrough Pain Last Admin: 01/24/25 20:18 Dose: 500 mg Documented By: LAKISHA Pharmacy Consult (Consult Rx Vancomycin Dosing) 1 each MISCELLANE DAILY PRN PRN Reason: Consult order Sodium Chloride (0.9 % Sodium Chloride Flush 3 Ml Syringe) 3 ml IVFLUSH QSHIFT [facility]S [facility]CLUDE 234 BEDS AT THE [facility] Last Admin: 01/25/25 07:26 Dose: Not Given Documented By: ROSEANN Non-Admin Reason: IV Running Labs 01/25/25 09:54 01/25/25 09:08 Labs: Laboratory Results - last 24 hr 01/25/25 01/25/25 01/25/25 09:08 09:08 09:08 MCV MCH MCHC RDW Plt Count MPV Absolute Nucleated RBC Nucleated RBC % (auto) Anion Gap 12 Estim Creat Clear Calc Cancelled 144.7 Estimated GFR Cancelled > 60 Random Glucose 89 Calcium 8.7 Random Vancomycin 10.7 L 01/25/25 09:54 MCV 75.5 L MCH 24.7 L MCHC 32.8 RDW 15.4 Plt Count 261 MPV 9.2 L Absolute Nucleated RBC 0.000 Nucleated RBC % (auto) 0.0 Anion Gap Estim Creat Clear Calc Estimated GFR Random Glucose Calcium Random Vancomycin Microbiology Microbiology Results: Microbiology 01/23/25 21:20 Blood Culture - Preliminary Blood - Venous No growth after 24 hours. 01/23/25 21:20 Blood Culture - Preliminary Blood - Venous No growth after 24 hours. Assessment and Plan (1) Cellulitis of left ring finger: Status: Acute Plan 29F presented with left 4th finger erythema and swelling Left 4th finger cellulitis, tenosynovitis continue vanc, zosyn, plan for OR 01/26/25 obesity, NAFLD weight loss recommended dvt prophylaxis - lovenox full code reason for continued hospitalization:plan for OR Quality Stroke Does the patient have a stroke diagnosis?: No VTE Prior VTE?: No VTE Risk Level:: Medical - moderate - high VTE Device Contraindication: Treatment Not Indicated VTE Drug Contraindication: N/A - Med Ordered
--- NOTE | 2025-01-25 11:37 | PC.NURSE ---
Patient leaving AMA, educated on risk vs benefits of leaving AMA, states I'm going to go to [facility]. patient is of sound mind, able to make decisions, Security called to escort patient down stairs, has history of Illicit Drug use. notified, IV Removed.
--- NOTE | 2025-01-25 11:38 | PM.DS ---
DS: Providers Provider Date of Service: 01/25/25 Date of admission: 01/23/25 22:09 Date of discharge: 01/25/25 Primary care physician: [facility] Consults: 01/23/25 22:09 Consult to Orthopedics Routine [place]ing [place] [facility] [place] [facility] Reason for consultation: ?tenosinuvitis DS: Diagnosis Discharge Diagnosis (1) Cellulitis of left ring finger: Status: Acute DS: Summary Hospital Course Hospital Course: from initial hpi: 29-year-old female with no significant past medical history presented to the hospital with a chief complaint of left hand 2nd finger pain redness and swelling for the past 2 days. Reports sleeping on the hand and later she noticed some redness which gradually worsened. Denies any injury. Denies injecting any drugs. Denies any fevers and chills. Denies any chest pain or palpitations. Mentions the pain is severe and range of motion is limited around the metatarsophalangeal joint. Review of all other systems is negative except mentioned above ER course: Per ER team, patient not have left hand ring finger were swelling and erythema extending into the dorsum of the hand. ROM limited. Discussed with orthopedics who reviewed the images and mentioned does not need any acute intervention for now. Recommended to continue antibiotics. hospital course: Patient was admitted for left 4th finger cellulitis and tenosynovitis. Was treated with IV vancomycin and Zosyn with some improvement though finger still very swollen with likely underlying abscess. Plan was for surgical incision and drainage however patient decided to leave against medical advice. She was able to express understanding of the risks of doing so including hand loss and . For obesity and nonalcoholic fatty liver disease weight loss recommended. Time Attestation Discharge Coordination Time (in mins): 33 Quality: Safe Use of Opioids Does Pt have an Active Cancer Diagnosis on the Problem List?: No Quality: Stroke Does the patient have a stroke diagnosis?: No Physical Exam Vital Signs: Vital Signs: Last Vital Signs Temp 99.1 F 01/25/25 07:43 Pulse 67 01/25/25 07:43 Resp 16 01/25/25 07:43 BP 117/65 01/25/25 07:43 Pulse Ox 99 01/25/25 07:43 O2 Del Method Room Air 01/25/25 07:43 BMI result Body Mass Index 38.3 Extrem: Other: Patient is alert, oriented, and in no acute distress. Neuro: Normal sensation of the tips of all digits of the left hand at this time Vascular: Cap refill brisk Pain: Tenderness to palpation about the dorsal aspect of the left ring finger and 4th MCP joint, with some tenderness extending into the distal hand Pain with range of motion of the left hand Left ring finger is able to be passively extend fully, however this is with some discomfort Flexion of the left ring finger also causes this pain ROM: Patient is able to be passively extended fully Patient is able to get approximately 2[address] a closed fist Skin: Tiny scabbed over laceration is noted on the radial aspect of the proximal left ring finger General: Significant edema in the dorsal and proximal aspect of the left ring finger as well as over the MCP joint and extending into the dorsal hand, largely unchanged from yesterday Today, there is a palpable fluid collection just distal to the dorsal MCP joint of the left ring finger concerning for abscess There is still erythema present over the dorsal aspect of the left ring finger, however this appears improved from yesterday Psych: Appears grossly normal Affect normal Attitude cooperative DS: Data Data Completed and Pending Labs on day of discharge: Laboratory Results - last 24 hr 01/25/25 01/25/25 01/25/25 09:08 09:08 09:08 WBC RBC Hgb Hct MCV MCH MCHC RDW Plt Count MPV Absolute Nucleated RBC Nucleated RBC % (auto) Sodium 138 Potassium 4.1 Chloride 112 H Carbon Dioxide 18 L Anion Gap 12 BUN 16 Creatinine Cancelled 0.75 Estim Creat Clear Calc Cancelled 144.7 Estimated GFR Cancelled Random Glucose Calcium Random Vancomycin 01/25/25 01/25/25 09:08 09:54 WBC 6.6 RBC 3.88 L Hgb 9.6 L Hct 29.3 L MCV 75.5 L MCH 24.7 L MCHC 32.8 RDW 15.4 Plt Count 261 MPV 9.2 L Absolute Nucleated RBC 0.000 Nucleated RBC % (auto) 0.0 Sodium Potassium Chloride Carbon Dioxide Anion Gap BUN Creatinine Estim Creat Clear Calc Estimated GFR > 60 Random Glucose 89 Calcium 8.7 Random Vancomycin 10.7 L Preliminary micro results at discharge 01/23/25 21:20 Blood Culture - Preliminary Blood - Venous No growth after 24 hours. 01/23/25 21:20 Blood Culture - Preliminary Blood - Venous No growth after 24 hours. Discharge Plan Discharge Anticipated Discharge Date/Time: 01/25/25 11:37 Patient Disposition: Left Against Medical Advice Discharge Diagnosis: cellulitis, tenosynovitis Referrals: [facility] [Primary Care Provider, Medical] - 1 Week Discharge Medications: No Action naproxen 250 mg Tablet 250 mg PO BID PRN (Reason: Pain) albuterol sulfate 90 mcg/actuation Aerosol Powdr Breath Activated 1 - 2 inh INHALATION Q4-6H PRN (Reason: Shortness Of Breath Or Wheezing) Discharge Orders: Discharge Order (Routine); Ordered 01/25/25 Ordered By: Ken Aguilar Diet: Advance to usual diet Activity on Discharge: As tolerated Print Language: Andorran Care Plan Goals: recovery Health Concerns: tenosynovitis Plan of Treatment: left ama Assessment: left ama
--- NOTE | 2025-01-25 11:39 | MHC.CM.PN ---
Patient left AMA prior to CM assessment.
== END 2025-01-25 11:43 | disposition left against medical advice (07) | DRG 383 ==
LOC: HO.ED 22:05 → HO.EDOVER 22:16 → HO.S3 01-24 07:30
PROVIDERS: Internal Medicine; Nurse Practitioner; Registered Nurse Emergency; Admitting Provider Hospitalist; Emergency Provider Emergency Medicine Emergency Medical Services; Visit Provider Internal Medicine
DX: L03.012 Cellulitis of left finger (principal); K76.0 Fatty (change of) liver, not elsewhere classified; E66.9 Obesity, unspecified; M65.942 Unspecified synovitis and tenosynovitis, left hand; F17.210 Nicotine dependence, cigarettes, uncomplicated; Z71.6 Tobacco abuse counseling; Z68.38 Body mass index [BMI] 38.0-38.9, adult; Z71.3 Dietary counseling and surveillance
CPT/HCPCS: 36415; 73130; 80048; 80053; 80202; 83605; 85025; 85027; 85652; 86140; 87040; 99285; J1171; J1650; J2270; J2543; J3373; J3374; J7120

== ENCOUNTER → 2025-01-23 17:46 | Outpatient (BNV) | payer MEDICAID, SELFPAY | PROVIDERS: Emergency Provider Emergency Medicine Emergency Medical Services; Visit Provider Radiology Diagnostic Radiology | DX: M79.89 Other specified soft tissue disorders (principal) | CPT/HCPCS: 73130 ==

== ENCOUNTER → 2025-01-23 22:09 | Outpatient (BNV) | payer MEDICAID, SELFPAY | PROVIDERS: Admitting Provider Hospitalist; Emergency Provider Emergency Medicine Emergency Medical Services | DX: L03.012 Cellulitis of left finger (principal); L08.9 Local infection of the skin and subcutaneous tissue, unspecified; L02.512 Cutaneous abscess of left hand | CPT/HCPCS: 99222; 99233 ==

== ENCOUNTER → 2025-01-23 22:09 | Outpatient (BNV) | payer MEDICAID, SELFPAY | PROVIDERS: Admitting Provider Hospitalist; Emergency Provider Emergency Medicine Emergency Medical Services; Visit Provider Internal Medicine | DX: L03.012 Cellulitis of left finger (principal) | CPT/HCPCS: 99232; 99239; 99499 ==